=== PATIENT | female | born 1990 | race Caucasian/White ===

== ENCOUNTER → 2018-11-26 | Outpatient (CLI) | payer OTHER ==
[~2018-11-26] MED LIST: ACEDIPPM PO; ANTOXYBENA LEFTEAR; ASCO500 PO; Amoxicillin500 MG PO; Bactrim Ds Tab1 EACH PO; CENTRUM SILVER1 EAC2 PO; CHOL10002 PO; Diflucan100 MG PO; ERGO400 PO; ESCI10; FEXO60 PO; FISH1000 PO; Fish Oil300 MG PO; Keflex500 MG PO; LAVAP17G PO; LORA1 PO; LORA10ER PO; MELO7.5 PO; MULVITMIND PO; ONDA4ODT MM; POLY500 PO; RANI150 PO; RXONDA4ODT MM; SENN187 PO; Senna8.6 M1 PO; TUMS; [UNRECOGNIZED DRUG - REMARK]
[2018-11-28 02:08] LABS: CHLAMYDIA TRACHOMATIS, NAA Negative (Negative); NEISSERIA GONORRHOEAE, NAA Negative (Negative)
== END ==
LOC: LAB SHORT 18:03 → LAB 18:03
PROVIDERS: Registered Nurse Community Health
DX: Z20.2 Contact with and (suspected) exposure to infections with a predominantly sexual mode of transmission (principal)
CPT/HCPCS: 87491; 87591

== ENCOUNTER → 2019-02-24 | Outpatient (CLI) | payer OTHER | END | disposition home or self-care (01) | LOC: LAB EV 17:24 → LAB SHORT 17:24 | DX: N39.0 Urinary tract infection, site not specified (principal) | CPT/HCPCS: 87077; 87086; 87186 ==

== ENCOUNTER → 2019-04-07 | Outpatient (CLI) | payer OTHER | END | disposition home or self-care (01) | LOC: LAB SRC 15:31 → LAB SHORT 15:31 | DX: N39.0 Urinary tract infection, site not specified (principal) | CPT/HCPCS: 87077; 87086; 87186 ==

== ENCOUNTER → 2019-06-01 | Outpatient (CLI) | payer OTHER ==
[2019-06-02 09:52] LABS: Candida species (DNA Probe) Negative (NEGATIVE); G. vaginalis (DNA Probe) Negative (NEGATIVE); T. vaginalis (DNA Probe) Positive (NEGATIVE)
== END ==
LOC: LAB SRC 11:00 → LAB SHORT 11:00
PROVIDERS: Physician Assistant
DX: B37.3 Candidiasis of vulva and vagina (principal)
CPT/HCPCS: 87480; 87510; 87660